=== PATIENT | male | born 1960 | race Caucasian/White ===

== ENCOUNTER 2019-03-14 10:07 | Emergency (ER) | payer BC, OTHER ==
[~2019-03-14] VITALS: Ht 180.3 cm; Wt 72.0 kg
[2019-03-14 11:01] LABS: BASOPHILS # (AUTO) 0.1 X10'3 (0-0.2); BASOPHILS % (AUTO) 0.8 % (0-1); EOSINOPHILS # (AUTO) 0.1 X10'3 (0-0.9); EOSINOPHILS % (AUTO) 2.1 % (0-6); HEMATOCRIT 45.9 % (42.0-52.0); HEMOGLOBIN 15.6 g/dl (14.0-17.9); LYMPHOCYTES # (AUTO) 1.1 X10'3 (1.1-4.8); LYMPHOCYTES % (AUTO) 15.1 % (21-51); MEAN CORPUSCULAR HEMOGLOBIN 30.7 PG (27.0-31.0); MEAN CORPUSCULAR HGB CONC 34.1 g/dL (33.0-36.5); MEAN CORPUSCULAR VOLUME 90.1 FL (78-98); MEAN PLATELET VOLUME 7.3 FL (7.4-10.4); MONOCYTES # (AUTO) 0.5 X10'3 (0-0.9); MONOCYTES % (AUTO) 7.4 % (2-12); NEUTROPHILS # (AUTO) 5.3 X10'3 (1.8-7.7); NEUTROPHILS % (AUTO) 74.6 % (42-75); PLATELET COUNT 263 X10'3 (140-440); RED BLOOD COUNT 5.09 X10'6 (4.70-6.10); RED CELL DISTRIBUTION WIDTH 12.9 % (11.5-14.5); WHITE BLOOD COUNT 7.1 X10'3 (4.5-11.0)
[2019-03-14 11:06] LABS: CLARITY,URINE CLEAR (Clear); COLOR,URINE STRAW (Yellow); GLUCOSE, URINE NEGATIVE (Neg); KETONES,URINE NEGATIVE (Neg); LEUKOCYTE ESTERASE ,URINE NEGATIVE (Neg); NITRITES, URINE NEGATIVE (Neg); OCCULT BLOOD,URINE SMALL (Neg); PH,URINE 6.5 (4.8-8.0); PROTEIN,URINE NEGATIVE (Neg); UROBILINOGEN,URINE 0.2 E.U/dL (0.2-1.0)
[2019-03-14 11:07] LABS: UA COLLECTION TYPE CLN CATCH MIDSTREAM
--- NOTE | 2019-03-14 11:11 | NUR ---
dr jason zuniga for med recommendations
[2019-03-14 11:12] LABS: URINE AMPHETAMINE SCREEN NEGATIVE (Neg); URINE BARBITUATE SCREEN NEGATIVE (Neg); URINE BENZODIAZEPINES SCREEN NEGATIVE (Neg); URINE CANNABINOID SCREEN POSITIVE (Neg); URINE COCAINE SCREEN NEGATIVE (Neg); URINE METHADONE SCREEN NEGATIVE (Neg); URINE OPIATE SCREEN NEGATIVE (Neg); URINE PHENCYCLIDINE SCREEN NEGATIVE (Neg)
[2019-03-14 11:17] LABS: BACTERIA,URINE NONE SEEN /HPF (Neg); MUCUS STRANDS NONE SEEN /LPF (Neg); SQUAMOUS EPITHELIAL CELL,UR NONE SEEN /LPF (FEW); WBC,URINE 0-4 /HPF (0-4)
[2019-03-14 11:33] LABS: ALANINE AMINOTRANSFERASE 28 U/L (12-78); ALBUMIN 4.1 G/DL (3.4-5.0); ALBUMIN/GLOBULIN RATIO 1.5 (1.1-1.5); ALKALINE PHOSPHATASE 49 IU/L (46-116); ANION GAP 5 (8-16); ASPARTATE AMINO TRANSFERASE 18 U/L (10-37); BILIRUBIN,TOTAL 0.6 MG/DL (0.1-1.0); BLOOD UREA NITROGEN 13 MG/DL (7-18); CALCIUM 8.9 MG/DL (8.5-10.1); CHLORIDE 109 MMOL/L (99-107); CREATININE 1.08 MG/DL (0.60-1.10); ETHANOL < 0.010 GM/DL (0.0-0.010); GLUCOSE 103 MG/DL (70-104); POTASSIUM 4.1 MMOL/L (3.5-5.1); SODIUM 143 MMOL/L (135-145); TOTAL CARBON DIOXIDE 28.7 MMOL/L (24-32); TOTAL PROTEIN 6.8 G/DL (6.4-8.2); eGFR 70 ML/MIN
--- NOTE | 2019-03-14 12:00 | NUR ---
PT RESTING IN BED
--- NOTE | 2019-03-14 13:00 | NUR ---
AT BEDSIDE WITH PATIENT
--- NOTE | 2019-03-14 13:12 | NUR ---
PACKET FAXED TO [facility]
--- NOTE | 2019-03-14 14:00 | NUR ---
PT AND ARE INTERACTING
--- NOTE | 2019-03-14 15:57 | NUR ---
PT AND REPORT ALOT OF MEDICATION CHANGE RECENTLY. PT JUST STARTED ZOLOFT 2 DAYS WHICH HE FEEL BAD HIM FEEL WORSE. HE WAS TAKEN OFF LIBRIUM 6 MONTHS AND HE STATES AROUND THAT TIME IS WHEN HE STARTED FEELING OFF
--- NOTE | 2019-03-14 16:28 | NUR ---
MIRZA [phone] CALL IF ANY ISSUES
--- NOTE | 2019-03-14 17:00 | NUR ---
PT IS RESTING. INSURANCE INFO UPDATED
[2019-03-14 17:10] VITALS: BP 148/82
--- NOTE | 2019-03-14 18:21 | NUR ---
Pt resting in bed, breathing unlabored.
--- NOTE | 2019-03-14 19:17 | NUR ---
Pt presented to ED after increasing feelings of SI with a plan to poison via carbon monoxide or walk in front of a train. Pt current SI 03/21, w/o a specific plan but pt cannot contract for safety should he be discharged. Pt rates his anxiety 12/19, depression 10/19. Pt states librium was discontinued 6 months ago, which coincides with increased feelings of being "off". Then, pt was started on zoloft a couple months ago and pt's feelings of suicidality significantly increased, causing alarm for both the pt and his . Pt has had counseling in the past, and states he began seeking help for depression when he was 48 yo. Pt says he's been diagnosed with bipolar, depression and ADHD but is unsure which is accurate; he just knows his mood has been unstable and needs medication adjustments. Pt is to see a new psychiatrist on the ; he has been seeing a telemed MD at [facility] as of late. Mood: Anxious/Depressed; Affect: Blunted; Behavior: Cooperative 5150: 03/14 @ 1536 for DTS hx: ADHD, Bipolar, Depression Tox Screen: THC + Social Support: Nelly, ,
--- NOTE | 2019-03-14 19:47 | NUR ---
Client to be admitted to [facility] for SI per Dr. Jamila Nunes MD.
--- NOTE | 2019-03-14 19:54 | NUR ---
Pt ate all of his dinner. This Rn updated on impending transfer to [facility]. RN offerred atarax to alleviate anxiety but pt opted to take it after assessment and admit process is complete upstairs. This RN called pharmacy, who verbally dictated medication type, dosage, and frequency as the pts nuha medicaitons are in the pharmacy's possession.
--- NOTE | 2019-03-14 20:40 | NUR ---
COLETTE Adams here to transfer pt upstairs.
[2019-03-14] MEDS ORDERED: ZIPR40CA2 PO (22:23)
[2019-03-14] MEDS ORDERED: LAMO25TA94 PO (22:24)
== END 2019-03-14 20:40 ==
LOC: ER 10:08
DX: R45.851 Suicidal ideations (principal); F12.90 Cannabis use, unspecified, uncomplicated; Z91.09 Other allergy status, other than to drugs and biological substances; Z79.899 Other long term (current) drug therapy
CPT/HCPCS: 36415; 80053; 80305; 80320; 81001; 85025; 99285

== ENCOUNTER 2019-03-14 19:58 | Inpatient (IN) | payer BC ==
[~2019-03-14] VITALS: Ht 180.3 cm; Wt 72.9 kg
[2019-03-14 20:55] VITALS: BP 142/91
[2019-03-14] MEDS ORDERED: loperamide 2mg capsule PO PRN (21:35)
[2019-03-14] MEDS ORDERED: magnesium hydroxide 30ml (MOM) UD suspension PO PRN (21:35)
[2019-03-14] MEDS ORDERED: hydrOXYzine 25 MG tablet PO PRN (21:35)
[2019-03-14] MEDS ORDERED: LORazepam 1 MG tablet PO PRN (21:35)
[2019-03-14] MEDS ORDERED: acetaminophen 325mg tablet PO PRN ×2 (21:35)
[2019-03-14] MEDS ORDERED: mag hydrox/Alum hydrox/simeth 30ml oral suspension PO PRN (21:35)
--- NOTE | 2019-03-14 21:44 | NUR ---
ADMIT NOTE: Client self presented to the ED reporting suicidal ideation. Client stated, "I just want to ." and reported a plan to use carbon monoxide poisoning or jump in front of a train. Client stated "I get more depressed in the winter." He is currently experiencing a number of life stressors. Approximately 1 1/2 years ago client ingested a bottle of Seroquel and ended up in ICU, this was the only prior suicide attempt. Client has a long history of Depression. It was noted in the medical record client may have Bipolar DO. 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 Client was a daily marijuana user until 20 days ago. He is a non-smoker. Client has no significant medical history. S/P laminectomy. Client arrived on the unit 20:45 via wheelchair accompanied by Bryan Hernandez 2 RN Skin assessment was performed and personal belongings were inventoried. The client showered, was pleasant and cooperative. Affect and mood are depressed.
[2019-03-14] MEDS ORDERED: ZIPR40CA2 PO (22:23)
[2019-03-14] MEDS ORDERED: LAMO25TA94 PO (22:24)
[2019-03-14] MEDS ORDERED: traZODone 50mg tablet PO PRN (22:35)
[2019-03-14] MEDS ORDERED: lamoTRIgine 25mg tablet PO ONE (22:35)
[2019-03-14] MEDS ORDERED: ziprasidone 20mg capsule PO ONE (22:35)
[2019-03-15 07:31] VITALS: BP 136/85
[2019-03-15] MEDS: ziprasidone 20mg capsule PO SCH ×2 (08:14→21:20)
[2019-03-15] MEDS: lamoTRIgine 25mg tablet PO SCH ×2 (08:14→21:21)
[2019-03-15 08:31] LABS: CHOL/HDL RATIO 4.2 (0.00-4.99); CHOLESTEROL 160 MG/DL (0-200); HDL CHOLESTEROL 38 MG/DL (35-60); LDL CHOLESTEROL 107 MG/DL (50-100); TRIGLYCERIDES 95 MG/DL (20-135)
[2019-03-15 08:33] LABS: HEMOGLOBIN A1C 5.7 % (4.5-6.2)
--- NOTE | 2019-03-15 11:43 | NUR ---
Malnutrition consult: Pt unsure of wt loss however reports decreased appetite per malnutrition risk screen with RN. Only wt hx in EMR is a scaled wt of 77.3 kg in January 2013; current scaled wt is 78.95 kg. Pt currently with an appropriate BMI and is 101% IBW using current scaled weight. Pt on regular diet documented with 100% PO intake meeting nutrient needs. Pt with no decrease in muscle strength or edema. Pt currently doesn't not meet criteria for malnutrition. Will continue to follow. Addendum: 03/15/19 at [address] Amended: Links added.
--- NOTE | 2019-03-15 17:41 | NUR ---
Nursing Progress Note: Legal hold: 5150 Client on involuntary status for DTS. Report received from Cata Hanson RN with use of SBAR. Why are they here: Client self presented to the ED reporting suicidal ideation. Client stated, "I just want to ." and reported a plan to use carbon monoxide poisoning or jump in front of a train. Client stated "I get more depressed in the winter." He is currently experiencing a number of life stressors. Approximately 1 1/2 years ago client ingested a bottle of Seroquel and ended up in ICU, this was the only prior suicide attempt. Client has a long history of Depression. It was noted in the medical record client may have Bipolar DO. 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 Client was a daily marijuana user until 20 days ago. He is a non-smoker. Client has no significant medical history. S/P laminectomy. Assessment What has happened this shift: 1:1 assessment in pts room. Pt. is primarily concerned with discharging, He reports that he has spoken to other clients and he believes that we are going to ship him to [facility] or another higher acuity facility. Educated pt. on procedures, protocol. Pt. is also fearful that he will be held indefinitely, fears allayed. Pt, states that he chewed out a coworker and is now embarrassed to face coworker. Reports feeling "paranoid" on the job because of poor work effort and feeling that his peers are looking for mistakes. Reports that his grandchildren live with him and he is getting tired of this. Reports ongoing issues with depression and medication stopping and starting, has feelings of being on a roller coaster. S/I, H/I: Denies A/VH: Denies Sleep: 6.75 hrs NOC, napped x 1 ADL's: Independent Group attendance: No Were meds taken: Yes Any med S/E None Mental Status Exam Appearance: Clean and net in unit attire Eye contact: Direct Behavior: Calm and cooperative Speech: Clear. Normal rate and volume Mood: Depressed Affect: Blunted Thought process: Linear. Circumstantial. Blocking. Thought Content: Discharge Cognition: Alert and oriented x 4 Insight: Fair Judgment: Poor Interventions PRN's used:None Therapeutic interventions: 1:1 to assess for severity of symptoms, clear and simple directions, encouraged group attendance, educated regarding medications. q15" safety checks Restraints/seclusion/emergency medication: NA Justification of Continued Inpatient Treatment: Pt is in need medication stabilization, safe and secure environment to prevent adverse outcome or rehospitalization.
[2019-03-15 20:00] VITALS: BP 133/83
[2019-03-15] MEDS ORDERED: mirtazapine 15mg tablet PO SCH (21:00)
--- NOTE | 2019-03-16 01:00 | NUR ---
Nursing Progress Note: Legal hold: 5150 Client on involuntary status for DTS. Report received from AMY Vela with use of SBAR. Why are they here: Client self presented to the ED reporting suicidal ideation. Client stated, "I just want to ." and reported a plan to use carbon monoxide poisoning or jump in front of a train. Client stated "I get more depressed in the winter." He is currently experiencing a number of life stressors. Approximately 1 1/2 years ago client ingested a bottle of Seroquel and ended up in ICU, this was the only prior suicide attempt. Client has a long history of Depression. It was noted in the medical record client may have Bipolar DO. Client reported he was diagnosed by Dr Dawosn (?) with a personality DO, but does not know which one. Client was a daily marijuana user until 20 days ago. He is a non-smoker. Client has no significant medical history. S/P laminectomy. Assessment Pt denying SI, but still feels like he needs to get his depression 5/10 under control. Pt also endorses anxiety 5/10. Pt states he wants to discharge; RN encouraged pt to utilize this time to truly feel better so that he can remain stable and resume his regular lifestyle. 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 Pt's visited and he said it went well. "She is very supportive." Pt hoping Remeron better than trazodone this evening; "I need help to fall asleep. My anxiety get the best of me." Pt also stated the Geodon makes him drowsy in the morning; this RN suggested he discuss an alternative schedule with the provider -- eg taking the full dose of Geodon at night. Pt thought this is an option and will discuss with provider at next visit. Pt unsure how he will manage outside of [facility], but hopes the medication changes help improve his mood "so that I can go home." Per report, pt was concerned about being locked up or conserved, this RN educated pt to the legal holds, protocols for the unit. Pt stated he understood. Pt went to sleep after HS medication administration. S/I, H/I: Denies Both A/VH: Denies Both Sleep: See Sleep Assessment; Pt states he has trouble falling asleep, and that the medications make him drowsy during the day. Trying Remeron 15mg this evening, did not like Trazodone. ADL's: Independent Group attendance: No Were meds taken: Yes Any med S/E None Mental Status Exam Appearance: neat, with gibbs, wearing green scrubs and nonskid socks, uses glasses Eye contact: Good (Direct) Behavior: Cooperative, Engaging with peers, Watching TV, Attending HS Snack Speech: Clear. Normal rate and volume Mood: Depressed 5/10 and Anxious 5/10 Affect: Blunted with brightening Thought process: Linear Thought Content: Wanting to discharge, concern regarding going back to work, changing med schedule, concern about being kept locked up Cognition: A/Ox4 Insight: Fair Judgment: Poor Interventions PRN's used: None Therapeutic interventions: 1:1 to assess for severity of symptoms, encouraged group attendance, educated regarding medications. q15" safety checks Restraints/seclusion/emergency medication: NA Justification of Continued Inpatient Treatment: Pt is in need medication stabilization, safe and secure environment to prevent adverse outcome or rehospitalization.
[2019-03-16 07:33] VITALS: BP 128/83
[2019-03-16] MEDS: lamoTRIgine 25mg tablet PO SCH ×2 (08:18→20:13)
[2019-03-16] MEDS: ziprasidone 20mg capsule PO SCH ×2 (08:19→20:14)
[2019-03-16] MEDS ORDERED: ziprasidone 20mg capsule PO SCH (15:45)
--- NOTE | 2019-03-16 17:33 | NUR ---
Nursing Progress Note: Legal hold: 5150 Client on involuntary status for DTS. Report received from Cata Hanson RN with use of SBAR. Why are they here: Client self presented to the ED reporting suicidal ideation. Client stated, "I just want to ." and reported a plan to use carbon monoxide poisoning or jump in front of a train. Client stated "I get more depressed in the winter." He is currently experiencing a number of life stressors. Approximately 1 1/2 years ago client ingested a bottle of Seroquel and ended up in ICU, this was the only prior suicide attempt. Client has a long history of Depression. It was noted in the medical record client may have Bipolar DO. 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 Client was a daily marijuana user until 20 days ago. He is a non-smoker. Client has no significant medical history. S/P laminectomy. Assessment What has happened this shift: Patient was at breakfast stating that he us in bad shape because he didnt sleep very well last night, and feels anxious today. He states that he does not want to take Remeron anymore because of dream state and tossing and turning. Geodone given and patient went back to sleep until lunch time. S/I, H/I: Denies A/VH: Denies Sleep: 7.25 hrs NOC, napped ADL's: Independent Group attendance: No Were meds taken: Yes Any med S/E None Mental Status Exam Appearance: Clean and neat wearing unit attire with pants rolled up to knees. Eye contact: Direct Behavior: Cooperative Speech: Clear. Normal rate and volume Mood: Depressed Affect: Blunted Thought process: Linear. Circumstantial. Blocking. Guarded. Thought Content: Not sleeping. Cognition: Alert and oriented x 4 Insight: Fair Judgment: Poor Interventions PRN's used:None Therapeutic interventions: 1:1 to assess for severity of symptoms, clear and simple directions, encouraged group attendance, educated regarding medications. q15" safety checks Restraints/seclusion/emergency medication: NA Justification of Continued Inpatient Treatment: Pt is in need medication stabilization, safe and secure environment to prevent adverse outcome or rehospitalization.
[2019-03-16] MEDS: lithium carbonate 150mg capsule PO SCH (20:16)
[2019-03-16 20:23] VITALS: BP 130/84
--- NOTE | 2019-03-16 21:25 | NUR ---
Nursing Progress Note: Legal hold: 5150 Client on involuntary status for DTS. Report received from AMY Vela with use of SBAR. Why are they here: Client self presented to the ED reporting suicidal ideation. Client stated, "I just want to ." and reported a plan to use carbon monoxide poisoning or jump in front of a train. Client stated "I get more depressed in the winter." He is currently experiencing a number of life stressors. Approximately 1 1/2 years ago client ingested a bottle of Seroquel and ended up in ICU, this was the only prior suicide attempt. Client has a long history of Depression. It was noted in the medical record client may have Bipolar DO. 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 Client was a daily marijuana user until 20 days ago. He is a non-smoker. Client has no significant medical history. S/P laminectomy. Assessment What has happened this shift: Patient was was in bed at start of shift. Compliant with interview and Meds. Pt states he was dreaming of a movie he watched with his sister. After meds he went back to sleep. S/I, H/I: Denies A/VH: Denies Sleep: 7.25 hrs NOC, napped ADL's: Independent Group attendance: No Were meds taken: Yes Any med S/E None Mental Status Exam Appearance: Clean and neat wearing unit attire with pants rolled up to knees. Eye contact: Direct Behavior: Cooperative Speech: Clear. Normal rate and volume Mood: Depressed Affect: Blunted Thought process: Linear. Circumstantial. Blocking. Guarded. Thought Content: Not sleeping. Cognition: Alert and oriented x 4 Insight: Fair Judgment: Poor Interventions PRN's used:None Therapeutic interventions: 1:1 to assess for severity of symptoms, clear and simple directions, encouraged group attendance, educated regarding medications. q15" safety checks Restraints/seclusion/emergency medication: NA Justification of Continued Inpatient Treatment: Pt is in need medication stabilization, safe and secure environment to prevent adverse outcome or rehospitalization.
[2019-03-17 08:00] VITALS: BP 134/81
[2019-03-17] MEDS: ziprasidone 20mg capsule PO SCH ×2 (08:34→20:14)
[2019-03-17] MEDS: lithium carbonate 150mg capsule PO SCH ×2 (08:34→20:15)
[2019-03-17] MEDS: lamoTRIgine 25mg tablet PO SCH ×2 (09:04→20:14)
--- NOTE | 2019-03-17 17:30 | NUR ---
Nursing Progress Note: Legal hold: 5150 Client on involuntary status for DTS. Report received from AMY Wagner with use of SBAR. Why are they here: Client self presented to the ED reporting suicidal ideation. Client stated, "I just want to ." and reported a plan to use carbon monoxide poisoning or jump in front of a train. Client stated "I get more depressed in the winter." He is currently experiencing a number of life stressors. Approximately 1 1/2 years ago client ingested a bottle of Seroquel and ended up in ICU, this was the only prior suicide attempt. Client has a long history of Depression. It was noted in the medical record client may have Bipolar DO. 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 Client was a daily marijuana user until 20 days ago. He is a non-smoker. Client has no significant medical history. S/P laminectomy. Assessment What has happened this shift: Patient was observed resting in his bed at change of shift. He wakes and joins others in the group room for breakfast. Promptly after patient returns to his room and lays down in his bed. Patient states that he did not sleep well the night before and reports that he has not been sleeping well. He takes his morning medications without issue. He talks about starting a new medication at reports that he has not tried it yet but is willing to try it. Patient takes a shower today, attends groups and is observed socializing well with others. He states that he continues to feel depressed with minimal improvement. S/I, H/I: Denies A/VH: Denies Sleep: 7.15 hrs NOC, napped ADL's: Independent Group attendance: yes Were meds taken: Yes Any med S/E None Mental Status Exam Appearance: Clean, appropriately dressed Eye contact: Direct Behavior: Cooperative, friendly Speech: Clear. Normal rate and volume Mood: Depressed Affect: restricted with brightening Thought process: Linear Thought Content: starting new medication Cognition: Alert and oriented x 4 Insight: Fair Judgment: Poor Interventions Therapeutic interventions: 1:1 therapeutic assessment, maintained safe therapeutic milieu, provided active listening with positive reinforcement, provided medication administration/education/monitoring as needed; Q15 safety checks. Restraints/seclusion/emergency medication: N/A Justification of Continued Inpatient Treatment: Patient beginning new medication to treat depression. Continued therapeutic support and medication management needed to provide stabilization, prevent decompensation, and improve coping mechanisms decreasing risk to patient and re-admittance.
[2019-03-17 20:00] VITALS: BP 133/95
[2019-03-17] MEDS: buPROPion SR 150mg tablet PO SCH (20:14)
--- NOTE | 2019-03-17 21:53 | NUR ---
Nursing Progress Note: Legal hold: 5150 Client on involuntary status for DTS. Report received from AMY Vela with use of SBAR. Why are they here: Client self presented to the ED reporting suicidal ideation. Client stated, "I just want to ." and reported a plan to use carbon monoxide poisoning or jump in front of a train. Client stated "I get more depressed in the winter." He is currently experiencing a number of life stressors. Approximately 1 1/2 years ago client ingested a bottle of Seroquel and ended up in ICU, this was the only prior suicide attempt. Client has a long history of Depression. It was noted in the medical record client may have Bipolar DO. 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 Client was a daily marijuana user until 20 days ago. He is a non-smoker. Client has no significant medical history. S/P laminectomy. Assessment What has happened this shift: Patient was observed resting in his bed at change of shift. Patient states that he did not sleep well the night before and reports that he has not been sleeping well. He takes his morning medications without issue. He talks about starting a new medication at reports that he has not tried it yet but is willing to try it. He states that he continues to feel depressed with minimal improvement. Started Wellbutrin this shift, Had nice visit with his . S/I, H/I: Denies A/VH: Denies Sleep: 7.15 hrs NOC, napped ADL's: Independent Group attendance: yes Were meds taken: Yes Any med S/E None Mental Status Exam Appearance: Clean, appropriately dressed Eye contact: Direct Behavior: Cooperative, friendly Speech: Clear. Normal rate and volume Mood: Depressed Affect: restricted with brightening Thought process: Linear Thought Content: starting new medication Cognition: Alert and oriented x 4 Insight: Fair Judgment: Poor Interventions Therapeutic interventions: 1:1 therapeutic assessment, maintained safe therapeutic milieu, provided active listening with positive reinforcement, provided medication administration/education/monitoring as needed; Q15 safety checks. Restraints/seclusion/emergency medication: N/A Justification of Continued Inpatient Treatment: Patient beginning new medication to treat depression. Continued therapeutic support and medication management needed to provide stabilization, prevent decompensation, and improve coping mechanisms decreasing risk to patient and re-admittance.
[2019-03-18] MEDS: buPROPion SR 150mg tablet PO SCH ×2 (07:49→20:36)
[2019-03-18] MEDS: lithium carbonate 150mg capsule PO SCH ×2 (07:49→20:36)
[2019-03-18] MEDS: ziprasidone 20mg capsule PO SCH ×2 (07:49→20:36)
[2019-03-18] MEDS: lamoTRIgine 25mg tablet PO SCH ×2 (07:50→20:36)
[2019-03-18 08:00] VITALS: BP 134/85
--- NOTE | 2019-03-18 16:58 | NUR ---
Nursing Progress Note: Legal hold: VOL for DTS Report received from AMY Dias with use of SBAR. Why are they here: Client self presented to the ED reporting suicidal ideation. Client stated, "I just want to ." and reported a plan to use carbon monoxide poisoning or jump in front of a train. Client stated "I get more depressed in the winter." He is currently experiencing a number of life stressors. Approximately 1 1/2 years ago client ingested a bottle of Seroquel and ended up in ICU, this was the only prior suicide attempt. Client has a long history of Depression. It was noted in the medical record client may have Bipolar DO. 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 Client was a daily marijuana user until 20 days ago. He is a non-smoker. Client has no significant medical history. S/P laminectomy. Assessment What has happened this shift: Patient is observed sleeping at change of shift. When he wakes he tells this RN that his sleep has improved a little bit but that he continues to have strange dreams. He relates his weird dreams to not smoking pot. Medications are gone over with patient including new doses of lithium and wellbutrin. Patient denies having any questions. He reports that he used to take lithium in the past and that everything went down hill for him when he quit taking it. He states that he was told by past prescriber that he could quit if he wanted to and so that is what he did. Patient states that his mood has improved a little as well. His face brightens slightly when talking about the small improvements with his sleep and mood. Patient signs concents for all his current medications. Patient attends meals and groups with others in the group room. He is friendly and coopertiver throughout the day. He spends spare time in his room reading. S/I, H/I: Denies A/VH: Denies Sleep: 7.25 hrs NOC, napped ADL's: Independent Group attendance: yes Were meds taken: Yes Any med S/E None Mental Status Exam Appearance: Clean, appropriately dressed Eye contact: Direct Behavior: Cooperative, friendly Speech: Clear, soft tone, Normal rate and volume Mood: Depressed (reports improvement) Affect: restricted with brightening Thought process: Linear Thought Content: keeping busy Cognition: Alert and oriented x 4 Insight: Fair to good Judgment: Poor to fair Interventions Therapeutic interventions: 1:1 therapeutic assessment, maintained safe therapeutic milieu, provided active listening with positive reinforcement, provided medication administration/education/monitoring as needed; Q15 safety checks. Restraints/seclusion/emergency medication: N/A Justification of Continued Inpatient Treatment: Patient beginning new medication to treat depression. Continued therapeutic support and medication management needed to provide stabilization, prevent decompensation, and improve coping mechanisms decreasing risk to patient and re-admittance.
[2019-03-18 20:00] VITALS: BP 141/86
--- NOTE | 2019-03-18 21:43 | NUR ---
Nursing Progress Note: Legal hold: VOL for DTS Report received from AMY Vela with use of SBAR. Why are they here: Client self presented to the ED reporting suicidal ideation. Client stated, "I just want to ." and reported a plan to use carbon monoxide poisoning or jump in front of a train. Client stated "I get more depressed in the winter." He is currently experiencing a number of life stressors. Approximately 1 1/2 years ago client ingested a bottle of Seroquel and ended up in ICU, this was the only prior suicide attempt. Client has a long history of Depression. It was noted in the medical record client may have Bipolar DO. 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 Client was a daily marijuana user until 20 days ago. He is a non-smoker. Client has no significant medical history. S/P laminectomy. Assessment What has happened this shift: Patient is observed sleeping at change of shift. Medications are gone over with patient including new doses of lithium and wellbutrin. Patient denies having any questions. He reports that he used to take lithium in the past and that everything went down hill for him when he quit taking it. He states that he was told by past prescriber that he could quit if he wanted to and so that is what he did. Patient states that his mood has improved a little as well. His face brightens slightly when talking about the small improvements with his sleep and mood. Patient signs concents for all his current medications. S/I, H/I: Denies A/VH: Denies Sleep: 7.25 hrs NOC, napped ADL's: Independent Group attendance: yes Were meds taken: Yes Any med S/E None Mental Status Exam Appearance: Clean, appropriately dressed Eye contact: Direct Behavior: Cooperative, friendly Speech: Clear, soft tone, Normal rate and volume Mood: Depressed (reports improvement) Affect: restricted with brightening Thought process: Linear Thought Content: keeping busy Cognition: Alert and oriented x 4 Insight: Fair to good Judgment: Poor to fair Interventions Therapeutic interventions: 1:1 therapeutic assessment, maintained safe therapeutic milieu, provided active listening with positive reinforcement, provided medication administration/education/monitoring as needed; Q15 safety checks. Restraints/seclusion/emergency medication: N/A Justification of Continued Inpatient Treatment: Patient beginning new medication to treat depression. Continued therapeutic support and medication management needed to provide stabilization, prevent decompensation, and improve coping mechanisms decreasing risk to patient and re-admittance.
[2019-03-19 08:00] VITALS: BP 124/77
[2019-03-19] MEDS: lamoTRIgine 25mg tablet PO SCH ×2 (08:11→21:08)
[2019-03-19] MEDS: ziprasidone 20mg capsule PO SCH ×2 (08:11→21:07)
[2019-03-19] MEDS: buPROPion SR 150mg tablet PO SCH ×2 (08:11→21:08)
[2019-03-19] MEDS: lithium carbonate 150mg capsule PO SCH ×2 (08:11→21:08)
[2019-03-19 11:18] VITALS: BP 124/77
--- NOTE | 2019-03-19 14:53 | NUR ---
Nursing Progress Note: Legal hold: VOL for DTS Report received from AMY Dias with use of SBAR. Why are they here: Client self presented to the ED reporting suicidal ideation. Client stated, "I just want to ." and reported a plan to use carbon monoxide poisoning or jump in front of a train. Client stated "I get more depressed in the winter." He is currently experiencing a number of life stressors. Approximately 1 1/2 years ago client ingested a bottle of Seroquel and ended up in ICU, this was the only prior suicide attempt. Client has a long history of Depression. It was noted in the medical record client may have Bipolar DO. 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 Client was a daily marijuana user until 20 days ago. He is a non-smoker. Client has no significant medical history. S/P laminectomy. Assessment What has happened this shift: Patient is observed sleeping at change of shift. He wakes and joins others in the group room for breakfast. He reports that he woke numerous times during the night and does not feel like he slept well, NOC reports 9.3hrs. Patient takes his medications without any issue and denies any S/Es, no IMs or tremors observed. Patient continues to report improvement in his mood. He attends groups and is appropriately social with peers and staff. Patient spends time alone in his room reading a book. S/I, H/I: Denies A/VH: Denies Sleep: 9.3 hrs NOC ADL's: Independent Group attendance: yes Were meds taken: Yes Any med S/E None Mental Status Exam Appearance: Clean, appropriately dressed, hair brushed Eye contact: Direct Behavior: Cooperative, friendly Speech: Clear, soft tone, Normal rate and volume Mood: Depressed (reports improvement) Affect: restricted with brightening Thought process: Linear Thought Content: reading his book Cognition: Alert and oriented x 4 Insight: Fair to good Judgment: fair to good Interventions Therapeutic interventions: 1:1 therapeutic assessment, maintained safe therapeutic milieu, provided active listening with positive reinforcement, provided medication administration/education/monitoring as needed; Q15 safety checks. Restraints/seclusion/emergency medication: N/A Justification of Continued Inpatient Treatment: Patient beginning new medication to treat depression. Continued therapeutic support and medication management needed to provide stabilization, prevent decompensation, and improve coping mechanisms decreasing risk to patient and re-admittance.
--- NOTE | 2019-03-19 15:54 | NUR ---
Reassessment: Patient is eating well, received call from patient's regarding sending double protein with meals, d/w dietary. He is eating 75-100% PO intake of regular diet. Noted only small BMs since admission, has milk of magnesia prn not given yet; d/w nursing staff regarding bowel care. Will continue to follow. Recommend: 1. continue regular diet 2. bowel care as needed 3. weekly wts Addendum: 03/19/19 at [address] Amended: Links added.
[2019-03-19 20:00] VITALS: BP 134/82
--- NOTE | 2019-03-20 04:18 | NUR ---
Nursing Progress Note: Legal hold: VOL for DTS Report received from AMY Nielsen with use of SBAR. Why are they here: Client self presented to the ED reporting suicidal ideation. Client stated, "I just want to ." and reported a plan to use carbon monoxide poisoning or jump in front of a train. Client stated "I get more depressed in the winter." He is currently experiencing a number of life stressors. Approximately 1 1/2 years ago client ingested a bottle of Seroquel and ended up in ICU, this was the only prior suicide attempt. Client has a long history of Depression. It was noted in the medical record client may have Bipolar DO. 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 Client was a daily marijuana user until 20 days ago. He is a non-smoker. Client has no significant medical history. S/P laminectomy. Assessment What has happened this shift: Pt states +SI 03/21 but no plan, and denies anxiety but rates depression 07/29. Pt states he only has anxiety in the morning r/t feeling like he should be going to work. Pt feeling a bit better about returning to work, as he has learned that his coworkers are inquiring as to how he is doing; he thought they would treat him differently now that they know he has a mental illness. Pt relayed story of bringing him a hamburger and he brightened. Pt took HS meds then went to sleep after reading. S/I, H/I: +SI 03/21, no plan; Denies HI A/VH: Denies Both Sleep: See Sleep Assessment ADL's: Independent Group attendance: yes Were meds taken: Yes Any med S/E: None reported nor observed Mental Status Exam Appearance: Clean, appropriately dressed, hair brushed, wearing unit scrubs and nonskid socks Eye contact: Direct Behavior: Cooperative, friendly, reading in room, attending HS snack Speech: Clear, soft tone, Normal rate and volume Mood: Depressed (reports improvement) Affect: Constricted with intermittent brightening Thought process: Linear Thought Content: reading his books, going back to work Cognition: A/Ox4 Insight: Fair to good Judgment: fair to good Interventions PRNs: Tylenol 650mg for headache Therapeutic interventions: 1:1 therapeutic assessment, maintained safe therapeutic milieu, provided active listening with positive reinforcement, provided medication administration/education/monitoring as needed; Q15 safety checks. Restraints/seclusion/emergency medication: N/A Justification of Continued Inpatient Treatment: Patient beginning new medication to treat depression. Continued therapeutic support and medication management needed to provide stabilization, prevent decompensation, and improve coping mechanisms decreasing risk to patient and re-admittance.
[2019-03-20 08:08] VITALS: BP 130/78
[2019-03-20] MEDS: lamoTRIgine 25mg tablet PO SCH ×2 (08:33→20:17)
[2019-03-20] MEDS: ziprasidone 20mg capsule PO SCH ×2 (08:33→20:15)
[2019-03-20] MEDS: lithium carbonate 150mg capsule PO SCH (08:33)
[2019-03-20] MEDS: buPROPion SR 150mg tablet PO SCH ×2 (08:33→20:15)
--- NOTE | 2019-03-20 13:02 | NUR ---
NURSING PROGRESS NOTE Legal hold: VOL for DTS Report received from AMY Dias with use of SBAR. Why are they here: Client self presented to the ED reporting suicidal ideation. Client stated, "I just want to ." and reported a plan to use carbon monoxide poisoning or jump in front of a train. Client stated "I get more depressed in the winter." He is currently experiencing a number of life stressors. Approximately 1 1/2 years ago client ingested a bottle of Seroquel and ended up in ICU, this was the only prior suicide attempt. Client has a long history of Depression. It was noted in the medical record client may have Bipolar DO. 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 Client was a daily marijuana user until 20 days ago. He is a non-smoker. Client has no significant medical history. S/P laminectomy. Assessment What has happened this shift: The patient was up to breakfast and interacting well with others. Denies suicidal thoughts, feels ready to go home and reports anxiety as "better." Reports feeling that the only thing he is anxious about is going back to work where his co-workers might know he has been here and think he's psychotic. But, does state he is eager to get back to work and he likes his job very much. States his is very supportive. Isolates to room and is reading "self help" books. S/I, H/I: Denies A/VH: Denies Sleep: Napped ADL's: Independent Group attendance: yes Were meds taken: Yes Any med S/E: None reported nor observed Mental Status Exam Appearance: Clean and neat Eye contact: Direct Behavior: Cooperative, polite Speech: Clear, soft Mood: depressed but lifting Affect: smiling Thought process: Linear Thought Content: getting back to work, going home Cognition: Alert Insight: Good Judgment: Good Interventions PRNs: None Therapeutic interventions: 1:1 therapeutic assessment, maintained safe therapeutic milieu, provided active listening with positive reinforcement, provided medication administration/education/monitoring as needed; Q15 safety checks. Restraints/seclusion/emergency medication: N/A Justification of Continued Inpatient Treatment: Patient beginning new medication to treat depression. Continued therapeutic support and medication management needed to provide stabilization, prevent decompensation, and improve coping mechanisms decreasing risk to patient and re-admittance.
[2019-03-20 19:40] VITALS: BP 134/84
[2019-03-20] MEDS ORDERED: lithium carbonate 150mg capsule PO SCH (21:00)
--- NOTE | 2019-03-20 23:35 | NUR ---
Nursing Progress Note: Elian Legal hold: VOL for DTS Report received from MELVINA Mena with use of SBAR. Why are they here: Client self presented to the ED reporting suicidal ideation. Client stated, "I just want to ." and reported a plan to use carbon monoxide poisoning or jump in front of a train. Client stated "I get more depressed in the winter." He is currently experiencing a number of life stressors. Approximately 1 1/2 years ago client ingested a bottle of Seroquel and ended up in ICU, this was the only prior suicide attempt. Client has a long history of Depression. It was noted in the medical record client may have Bipolar DO. 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 Client was a daily marijuana user until 20 days ago. He is a non-smoker. Client has no significant medical history. S/P laminectomy. Assessment What has happened this shift: Pt is in his room reading during shift change. Reports having a good day which was mostly spent in his room reading. When asked about his mood he states "relaxing". Pt is cooperative during 1:1 physical assessment and took all his HS meds without any problems. He denies any S/I, H/I and rates his anxiety at a 1/10. Pt states he is looking forward to going home tomorrow and going back to work. "My dogs are missing me and will be really happy to see me." He brightened when he mentioned this and talked extensively about his pets. Pt remained isolative to his room but he did come out for HS snack before putting himself to sleep. 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 meds taken: Yes Any med S/E None reported or observed Mental Status Exam Appearance: Clean, appropriately dressed Eye contact: Direct Behavior: Calm, Cooperative, very talkative Speech: Clear, soft tone, Normal rate and volume Mood: "Relaxed", Affect: Bright Thought process: Linear Thought Content: Focused on being discharged tomorrow Cognition: Alert and oriented x 4 Insight: Fair to good Judgment: Fair to good Interventions Therapeutic interventions: 1:1 therapeutic assessment, maintained safe therapeutic milieu, provided active listening with positive reinforcement, provided medication administration/education/monitoring as needed; Q15 safety checks. Restraints/seclusion/emergency medication: N/A Justification of Continued Inpatient Treatment: Patient beginning new medication to treat depression. Continued therapeutic support and medication management needed to provide stabilization, prevent decompensation, and improve coping mechanisms decreasing risk to patient and re-admittance.
[2019-03-21 07:45] VITALS: BP 126/81
[2019-03-21] MEDS ORDERED: lithium carbonate 150mg capsule PO SCH (08:00)
[2019-03-21] MEDS: buPROPion SR 150mg tablet PO SCH (08:31)
[2019-03-21] MEDS: ziprasidone 20mg capsule PO SCH (08:32)
[2019-03-21] MEDS: lamoTRIgine 25mg tablet PO SCH (08:32)
[2019-03-21] MEDS ORDERED: LITH150C8 PO ×2 (12:00)
[2019-03-21] MEDS ORDERED: ZIPR20CA12 PO ×2 (12:00)
[2019-03-21] MEDS ORDERED: LAMO25TA5 PO (12:00)
[2019-03-21] MEDS ORDERED: BUPR-72 PO (12:00)
--- NOTE | 2019-03-21 12:31 | NUR ---
DISCHARGE NOTE: Patient off unit @ 1217. All belongings inventoried and returned to patient's spouse, medications retrieved from pharmacy and also returned to spouse. Discharge instructions verbally explained in addition to providing a written copy. All medication orders explained to both patient and spouse. Ambulated off unit accompanied by RN and left in the care of spouse who will be transporting patient to appointment at [facility] at 1245. Patient and spouse verbalize understanding of discharge instructions. Patient is free of symptoms of severe depression and denies any SI. States plan for safety in the event of feelings of being overwhelmed or hopeless.
== END 2019-03-21 12:17 | disposition home or self-care (01) | DRG 885 ==
LOC: ADULT MH 21:11
PROVIDERS: ADMIT Psychiatry & Neurology Psychiatry; ATTEND Psychiatry & Neurology Psychiatry
DX: F31.4 Bipolar disorder, current episode depressed, severe, without psychotic features (principal); F51.4 Sleep terrors [night terrors]; F60.9 Personality disorder, unspecified; F90.2 Attention-deficit hyperactivity disorder, combined type; G47.9 Sleep disorder, unspecified
CPT/HCPCS: 36415; 80061; 80178; 83036; 87081; Z7610